=== PATIENT | male | born 1990 | race African-American/Black ===

== ENCOUNTER 2020-11-15 09:42 | Emergency (ER) | payer SELFPAY ==
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
== END 2020-11-15 11:20 | disposition home or self-care (01) ==
LOC: BURERS 09:42
DX: S16.1XXA Strain of muscle, fascia and tendon at neck level, initial encounter (principal); S93.402A Sprain of unspecified ligament of left ankle, initial encounter; V43.52XA Car driver injured in collision with other type car in traffic accident, initial encounter; Z79.899 Other long term (current) drug therapy; F17.210 Nicotine dependence, cigarettes, uncomplicated
CPT/HCPCS: 72125